=== PATIENT | male | born 1935 | race Caucasian/White ===

== ENCOUNTER → 2020-08-14 15:10 | Outpatient (CLI) | payer MEDICARE, OTHER, SELFPAY ==
[2020-08-14 15:49] LABS: COVID19 -Nasal RAPID Negative (Negative)
== END ==
PROVIDERS: Visit Provider Physical Medicine & Rehabilitation
DX: Z01.812 Encounter for preprocedural laboratory examination (principal); Z20.822 Contact with and (suspected) exposure to COVID-19
CPT/HCPCS: 87635; C9803

== ENCOUNTER 2020-08-15 14:02 | Outpatient (CLI) | payer MEDICARE, OTHER, SELFPAY ==
[2020-08-15] VITALS (9 sets, daily range): BP systolic 137–190; BP diastolic 57–83; PULSE 60–70; RESP 16–19; TEMP 36.9; O2SAT 97–100
--- NOTE | 2020-08-15 14:05 | DI.RAD.S_ITS ---
PROCEDURE: PAIN L INTERLAMINAR/CAUDAL INJ INDICATIONS: L2/3 TL [facility] COMPARISON: Outside Facility, RG, MRI L-SPINE W/O CONTRAST, 05/30/2020, 9:20. Outside Facility, RG, XR L-SPINE 2-3V, 04/28/2020, 10:06. FINDINGS: Fluoroscopic spot filming was performed to verify placement of a spinal needle at the L2-L3 level, as labeled on the films. Appropriate location of the needle tip was confirmed by injection of iodinated contrast. IMPRESSION: Intraprocedural examination within normal limits. Dictated by: Dillon Brito M.D. on 08/15/2020 at 15:47 Approved by: Dillon Brito M.D. on 08/15/2020 at 15:47
[2020-08-15] MEDS: MIDAZOLAM 5 MG/5 ML VIAL IV (15:23)
[2020-08-15] MEDS: IOPAMIDOL 15 ML VIAL 3 ML INJ (15:27)
[2020-08-15] MEDS: BUPIVACAINE 0.25% (PF) VIAL 2 ML INJ (15:27)
[2020-08-15] MEDS: BETAMETHASONE 30 MG/5 ML MDV 6 MG INJ (15:27)
[2020-08-15] MEDS: DEXAMETHASONE 10 MG/ML VIAL 20 MG INJ (15:28)
--- NOTE | 2020-08-15 15:34 | PM.PROC.IR.1 ---
Date/Time/Diagnoses Date of procedure: 08/15/20 Time of procedure: 15:34 Pre-procedure diagnosis: 1. HNP WITH RADICULAR FEATURES, 2. MULTILEVEL CENTRAL STENOSIS, Post-procedure diagnosis: same Procedure Notes Procedure: 1. FLUOROSCOPICALLY GUIDED CONTRAST CONTROLLED INTERLAMINAR EPIDURAL STEROID INJECTION - L2/3 Indications: [facility] is referred for treatment of Bilateral Foraminal Stenosis L>R LE symptoms. Physician: Krishna Rosales Total Fluoroscopy time (seconds): 6 Total sedation minutes: 9 Complications: none Procedure in detail & Post-procedure care: FINDINGS Multilevel Central Spinal Stenosis with Nerve Root Compression DESCRIPTION OF PROCEDURE Fluoroscopically guided, contrast-controlled L2/3 translaminar epidural steroid injection. Following review of allergy and review of potential side effects and complications, including, but not necessarily limited to, infection, allergic reaction, local tissue breakdown, temporary as well as permanent nerve injury, paralysis, stroke and possible , the patient indicated that the patient understood and agreed to proceed. An informed consent document was signed by the patient, witnessed by a nurse, and placed in the patient's chart. Additionally, other treatment options including modalities, medications, and physical therapy were reviewed with the patient. After review of previous anaesthesic history and IV conscious sedation the patient was deemed safe to proceed with today?s procedure with IV conscious sedation as ASA class II designation. Safety time-out was performed to confirm patient ID, procedure to be performed and site of procedure. IV sedation was accomplished with a combination of 1mg Versed administered by the RN after DO order, titrated to patient comfort during the course of the procedure while the patient remained responsive to all verbal commands. In the prone position, following sterile prep and drape of the lumbar region,the L2/3 translaminar space was identified fluoroscopically. The skin was anesthetized via a 25-gauge, 1.5-inch needle with 1% lidocaine solution. At this point, a 22-gauge short bevel spinal needle was atraumatically introduced and advanced under fluoroscopic guidance into the region of the L2/3 translaminar space. Depth was confirmed on lateral view. Radiological data, including multiple fluoroscopic views of the lumbar spine, reveal a spinal needle at the L2/3 translaminar space. Lateral views then show placement of the needle in the epidural space. Subsequent views show contrast material flowing superiorly and inferiorly in the epidural space. No vascular or intrathecal uptake is observed. At this point, using loss of resistance technique with saline and air, the epidural space was entered. This was confirmed following negative aspiration with injection of approximately 1.5 cc of Isovue 200, showing excellent epidural flow without vascular or intrathecal uptake. At this point, 1cc of 1% lidocaine solution combined with 3cc or 20mg of dexamethasone and 6mg of betamethasone was injected without incident. The patient tolerated the procedure well without signs or symptoms of complications prior to transfer to the recovery area continued monitoring without incident. The patient was then transferred to the recovery area where they were observed for an appropriate period of time after the injection. The patient reported a VAS score of 6 prior to the procedure and a post-procedure VAS of 0. POST OP INSTRUCTIONS The patient was provided a Pain Log to continue to record their response to the target-specific procedure prior to follow-up visit with their referring physician. Additionally, specific post-injection care instructions and a contact number to our office were provided if concerns arise regarding possible complications associated with the procedure are suspected.
== END 2020-08-15 16:05 | disposition home or self-care (01) ==
PROVIDERS: Referring Provider Physical Medicine & Rehabilitation; Visit Provider Physical Medicine & Rehabilitation
DX: M51.16 Intervertebral disc disorders with radiculopathy, lumbar region (principal); M48.061 Spinal stenosis, lumbar region without neurogenic claudication
CPT/HCPCS: 62323; J0702; J1100; J2250; J3010

== ENCOUNTER → 2020-09-25 15:45 | Outpatient (CLI) | payer MEDICARE, OTHER, SELFPAY ==
[2020-09-25 17:46] LABS: COVID19 -Nasal RAPID Negative (Negative)
== END ==
PROVIDERS: Visit Provider Physical Medicine & Rehabilitation
DX: Z20.822 Contact with and (suspected) exposure to COVID-19 (principal)
CPT/HCPCS: 87635; C9803

== ENCOUNTER 2020-09-26 14:19 | Outpatient (CLI) | payer MEDICARE, OTHER, SELFPAY ==
--- NOTE | 2020-09-26 14:24 | DI.RAD.S_ITS ---
PROCEDURE: PAIN L/S FACET INJ/BLK 1ST ARMAND COMPARISON: [facility], XA, PAIN L INTERLAMINAR/CAUDAL INJ, 08/15/2020, 15:26. Outside Facility, RG, MRI L-SPINE W/O CONTRAST, 05/30/2020, 9:20. INDICATIONS: SPONDYLOSIS FINDINGS: 6 intraoperative fluoroscopy images demonstrate needle placement at L2-L3 and L4-L5. Note is made of spinal fusion at L3-L4. IMPRESSION: Fluoroscopy for pain management. Dictated by: Mini Godfrey M.D. on 09/26/2020 at 16:17 Approved by: Mini Godfrey M.D. on 09/26/2020 at 16:24
[2020-09-26 14:40] VITALS: BP 123/57; PULSE 67; RESP 17; TEMP 36.2; O2SAT 97
[2020-09-26 15:20] VITALS: BP 179/81; PULSE 63; RESP 15; O2SAT 99
[2020-09-26] MEDS: MIDAZOLAM 5 MG/5 ML VIAL IV (15:22)
[2020-09-26 15:25] VITALS: BP 162/72; PULSE 67; RESP 17; O2SAT 98
[2020-09-26 15:30] VITALS: BP 148/65; PULSE 70; RESP 17; O2SAT 98
[2020-09-26] MEDS: IOPAMIDOL 15 ML VIAL 3 ML INJ (15:31)
[2020-09-26] MEDS: BETAMETHASONE 30 MG/5 ML MDV 12 MG INJ (15:32)
[2020-09-26] MEDS: BUPIVACAINE 0.5% (PF) VIAL 2 ML INJ (15:32)
[2020-09-26] MEDS: LIDOCAINE 1% 20 ML 10 ML INJ (15:33)
--- NOTE | 2020-09-26 15:36 | P.PCN_ITS ---
Date/Time/Diagnoses Date of procedure: 09/26/20 Time of procedure: 15:36 Pre-procedure diagnosis: 1. FACET ARTHROPATHY 2. AXIAL LBP 3. MULTILEVEL DDD Post-procedure diagnosis: same Procedure Notes Procedure: 1. FLUORSCOPICALLY GUIDED CONTRAST CONTROLLED FACET JOINT INJECTIONS BILATERAL L2/3, L4/5 Indications: [facility] is referred for treatment of Axial LBP s/p Fusion. Physician: Krishna Rosales Total Fluoroscopy time (seconds): 10 Total sedation minutes: 11 Complications: none Procedure in detail & Post-procedure care: FINDINGS Multilevel Facet Arthropathy with Clinically significant axial LBP DESCRIPTION OF PROCEDURE Fluoroscopically guided, contrast-controlled bilateral L2/3, L4/5 facet joint injections. Following review of allergy and review of potential side effects and complications, including, but not necessarily limited to, infection, allergic reaction, local tissue breakdown, stroke, temporary or permanent nerve injury, paralysis, and possible , the patient indicated that the patient understood and agreed to proceed. An informed consent document was signed by the patient, witnessed by a nurse, and placed in the patient's chart. Additionally, other treatment options including medications, modalities, and physical therapy were reviewed with the patient. After review of previous anaesthesic history and IV conscious sedation the patient was deemed safe to proceed with today's procedure with IV conscious sedation as ASA class II designation. Safety time-out was performed to confirm patient ID, procedure to be performed and site of procedure. IV sedation was accomplished with a combination of 2mg of Versed was administered by the RN after DO order, titrated to patient comfort during the course of the procedure while the patient remained responsive to all verbal commands. In the prone position, following sterile prep and drape of the lumbar region, the posterior aspect of the L2/3, L4/5 facet joints were identified fluoroscopically. The skin was anesthetized via a 25-gauge 1.5-inch needle with 1% lidocaine solution into the corresponding facet joints. At this point, a 22- gauge 3.5-inch spinal needle was atraumatically introduced and advanced under fluoroscopic guidance into the corresponding facet joints. Following negative aspiration, injections of approximately 0.2cc of Isovue 200 confirmed interarticular placement without vascular uptake. The identical procedure was then performed at the L2/3, L4/5 facet joints on the left. Radiological data, including multiple fluoroscopic views of the lumbosacral spine, reveal a spinal needle at the L2/3, L4/5 facet joints bilaterally. Subsequent views show flow of contrast material both superiorly and inferiorly within the joint space without vascular or intrathecal uptake. At this point, a total of 0.5cc including a mixture of 0.25cc Marcaine and 0.25cc betamethasone was injected without complication into each of the corresponding facet joints. The patient tolerated the procedure well without signs or symptoms of complications prior to transfer to the recovery area continued monitoring without incident. The patient was then transferred to the recovery area where they were observed for an appropriate period of time after the injection. The patient reported a VAS score of 7 prior to the procedure and a post-procedure VAS of 0. POST OP INSTRUCTIONS The patient was provided a Pain Log to continue to record their response to the target-specific procedure prior to follow-up visit with their referring physician. Additionally, specific post-injection care instructions and a contact number to our office were provided if concerns arise regarding possible complications associated with the procedure are suspected.
== END 2020-09-26 16:12 | disposition home or self-care (01) ==
LOC: RAD 14:24
PROVIDERS: Referring Provider Physical Medicine & Rehabilitation; Visit Provider Physical Medicine & Rehabilitation
DX: M47.816 Spondylosis without myelopathy or radiculopathy, lumbar region (principal); M51.36 Other intervertebral disc degeneration, lumbar region; M54.5 Low back pain
CPT/HCPCS: 64493; 64494; 99152; J0702; J2250; J3010

== ENCOUNTER 2020-12-07 07:18 | Outpatient (CLI) | payer MEDICARE, OTHER, SELFPAY ==
[2020-12-07] VITALS (16 sets, daily range): BP systolic 83–173; BP diastolic 48–81; PULSE 59–70; RESP 13–20; TEMP 36.2; O2SAT 94–99
--- NOTE | 2020-12-07 07:19 | DI.RAD.S_ITS ---
PROCEDURE: PAIN L/S FACET INJ/BLK 1ST ARMAND COMPARISON: [facility], , PAIN L/S FACET INJ/BLK 1ST ARMAND, 09/26/2020, 15:23. INDICATIONS: SPONDYLOSIS FINDINGS: Fluoroscopic spot filming was performed to verify placement of spinal needles on both sides at L2, L3, L4, and L5, as labeled on the films. Appropriate location of the needle tips was confirmed by injection of iodinated contrast. IMPRESSION: Intraprocedural examination within normal limits. Dictated by: Dillon Brito M.D. on 12/07/2020 at 10:38 Approved by: Dillon Brito M.D. on 12/07/2020 at 10:39
[2020-12-07] MEDS: fentaNYL 100 MCG/2 ML INJ 50 MCG IV (08:22)
[2020-12-07] MEDS: IOPAMIDOL 15 ML VIAL 3 ML INJ (08:25)
[2020-12-07] MEDS: LIDOCAINE 1% 20 ML 10 ML INJ (08:26)
[2020-12-07] MEDS: BUPIVACAINE 0.5% (PF) VIAL 5 ML INJ (08:26)
[2020-12-07] MEDS: MIDAZOLAM 5 MG/5 ML VIAL IV (08:32)
--- NOTE | 2020-12-07 09:13 | P.PCN_ITS ---
Date/Time/Diagnoses Date of procedure: 12/07/20 Time of procedure: 09:13 Pre-procedure diagnosis: 1. FACET ARTHROPATHY Post-procedure diagnosis: same Procedure Notes Procedure: 1. BILATERAL L2, L3, L4 AND L5 DIAGNOSTIC MB BLOCKS Indications: [facility] is referred for treatment of Bilateral Axial LBP. Physician: Krishna Rosales Total Fluoroscopy time (seconds): 17 Total sedation minutes: 21 Complications: none Procedure in detail & Post-procedure care: DESCRIPTION OF PROCEDURE Fluoroscopically guided, contrast-controlled bilateral L2, L3, L4 AND L5 medial branch blocks with 0.5cc of 0.5% Marcaine. Following review of allergy and review of potential side effects and complications, including, but not necessarily limited to, infection, allergic reaction, local tissue breakdown, nerve injury, paralysis, stroke and possible , the patient indicated that the patient understood and agreed to proceed. An informed consent document was signed by the patient, witnessed by a nurse, and placed in the patient's chart. After review of previous anaesthesic history and IV conscious sedation the patient was deemed safe to proceed with today's procedure with IV conscious sedation as ASA class II designation. Safety time-out was performed to confirm patient ID, procedure to be performed and site of procedure. IV sedation was accomplished with a combination of 4mg of Versed and 50mcg of Fentantyl was a dministered by the RN after DO order, titrated to patient comfort during the course of the procedure while the patient remained responsive to all verbal commands In the prone position, following sterile prep and drape of the lumbar region, the right L2, L3, L4 AND L5 anatomical location of the medial branch of the dorsal ramus was identified fluoroscopically. Subsequently an anesthetic skin wheal using 1% lidocaine solution was initiated at each of the anatomical spots. Subsequently then a 22-gauge 3.5-inch spinal needle was atraumatically introduced and advanced under fluoroscopic guidance at each of the corresponding sites at the right L2, L3, L4 and L5 MB. After negative aspiration, 0.2cc of Isovue 200 was injected, confirming placement without vascular or intrathecal uptake. Subsequently then 0.5cc of 0.5% Marcaine solution was injected at each of the corresponding sites at the right L2, L3, L4 and L5 medial branch locations. The identical procedure was replicated on the left. The patient tolerated the procedure well without signs or symptoms of complications. The patient tolerated the procedure well without signs or symptoms of complications prior to transfer to the recovery area continued monitoring without incident. Post-procedure, the patient was monitored initiating provocative activities to measure the amount of relief from block of the facetogenic pain. The patient reported a VAS of 7 prior to the procedure and a post-procedure VAS of 1. It has been a pleasure to assist in the diagnostic and therapeutic care of your patient. POST OP INSTRUCTIONS The patient was provided with a Pain Log to complete over the next several hours and subsequent days prior to the patient's follow up with the ordering physician. If the patient has hosiery repairer relief to the solution applied, then they may be a candidate for medial branch rhizotomy. The patient is aware, was provided, once again, with a Pain Log and will follow up with the referring physician for review and clinical correlation
--- NOTE | 2020-12-07 10:08 | PC.NURSE ---
Patient was SBA with standing to use bathroom. He is A&O able to make needs known. He reports he feels at his baseline for steadiness on feet. Denies any dizziness or lightheaded, transferred at baseline into w/c as prior to procedure.
--- NOTE | 2020-12-07 11:16 | PC.NURSE ---
0845 Patient tolerated procedure well, was awake and relaxed throughout. At the end of the procedure after being cleaned up he was only responsive to painful stimuli. Vital signs remained stable (see trends), maintaining airway and Sp02 without issue. Once the patient was able to respond to verbal stimuli and follow simple commands he was assisted in turning from prone to supine on the procedure table where his BP dropped to 84/48 (60) - patient remained drowsy. Given more time patient was able to rouse enough to stand and pivot to the WC with 2 person minimal assist. Last BP in procedure room 111/58 (80). Taken to post recovery room and care handed off to CHARLOTTE Martinez with patient awake in NAD. VSS, Sp02 96% RA.
== END 2020-12-07 09:50 | disposition home or self-care (01) ==
LOC: RAD 07:18
PROVIDERS: Referring Provider Physical Medicine & Rehabilitation; Visit Provider Physical Medicine & Rehabilitation
DX: M47.816 Spondylosis without myelopathy or radiculopathy, lumbar region (principal)
CPT/HCPCS: 64493; 64494; 64495; 99152; J2250; J3010

== ENCOUNTER 2021-02-20 07:05 | Outpatient (CLI) | payer MEDICARE, OTHER, SELFPAY ==
[2021-02-20] VITALS (13 sets, daily range): BP systolic 88–171; BP diastolic 48–87; PULSE 58–87; RESP 9–16; TEMP 36.7; O2SAT 92–98
--- NOTE | 2021-02-20 07:07 | DI.RAD.S_ITS ---
PROCEDURE: PAIN L/S MED/LAT N RFA BILAT INDICATIONS: SPONDYLOSIS COMPARISON: [facility], , PAIN L/S FACET INJ/BLK 1ST ARMAND, 12/07/2020, 8:28. FINDINGS: Fluoroscopic spot filming was performed to verify placement of spinal needles at the L2 through L5 level(s), as labeled on the films. IMPRESSION: Intraprocedural examination within normal limits. Dictated by: Dillon Brtio M.D. on 02/20/2021 at 8:48 Approved by: Dillon Brito M.D. on 02/20/2021 at 8:49
--- NOTE | 2021-02-20 09:27 | P.PCN_ITS ---
Date/Time/Diagnoses Date of procedure: 02/20/21 Pre-procedure diagnosis: 1. RECALCITRANT FACET ARTHROPATHY Post-procedure diagnosis: same Procedure Notes Procedure: 1. BILATERAL L2, L3, L4 AND L5 MEDIAL BRANCH RADIOFREQUENCY NEUROTOMY Indications: [facility] is referred for treatment of facet arthropathy. Physician: Krishna Rosales Total Fluoroscopy time (seconds): 20 Total sedation minutes: 40 Complications: none Procedure in detail & Post-procedure care: DESCRIPTION OF PROCEDURE Bilateral L3, L4 and L5 medial branch radiofrequency neurotomy The patient is well known to this clinic having undergone previous facet injections with good but temporary relief. The patient has experienced appropriate, concordant relief with previous facet and median branch blocks but the patient's pain has been recalcitrant to further conservative measures. Therefore, based upon the patient's relief and persistent symptoms, the patient is considered an appropriate candidate for facet rhizotomy. All of the patient's questions regarding the risks versus benefits of the procedure, including, but not limited to, bleeding, infection, temporary as well as lasting nerve injury, paralysis, stroke, and , as well treatment alternatives were answered to satisfaction. After obtaining informed consent, denial of pertinent drug allergies, as well as being made aware of the potential risks of bleeding, infection, spinal cord trauma, paralysis, temporary and permanent nerve damage, seizure, stroke, and possible , the patient was brought to the fluoroscopy suite and positioned prone on the fluoroscopy table. The lumbar region was prepped with Betadine and covered with a fenestrated drape in the usual sterile fashion. Appropriate monitors applied including pulse oximeter, pulse, and blood pressure for regular monitoring throughout the procedure. After review of previous anaesthesic history and IV conscious sedation the patient was deemed safe to proceed with today's procedure with IV conscious sedation as ASA class II designation. Safety time-out was performed to confirm patient ID, procedure to be performed and site of procedure. IV sedation was accomplished with a combination of 4mg of Versed and 50mcg of Fentanyl a dministered by the RN after DO order, titrated to patient comfort during the course of the procedure while the patient remained responsive to all verbal commands. After local infiltration using 1% lidocaine, under fluoroscopic guidance, a 10- cm RF insulated needle with a 10-mm active tip was positioned parallel to the junction of the right the superior articulating process where the L5 medial b ranch resides. Needle placement was confirmed with motor stimulation of .5v on the right which produced local stimulation without radicular component. The stimulation was then increased to 2v with, once again, only local multifidus stimulation without radicular component. The needle was then removed and the identical procedure was performed along the length of the right L4 medial branch with motor stimulation at .7v on the right. The identical procedure was once again performed along the length of the right L3 and medial branch with motor stimulation of .5v on the right. The medial branches were then anesthetised with 0.5% marcaine. The identical procedure was once again performed along the length of the right L2 and medial branch with motor stimulation of .5v on the right. The medial branches were then anesthetised with 0.5% marcaine. This was then followed by two discreet lesions performed at 80 degrees Celsius for 90 seconds each. The identical procedures were repeated on the left. The patient tolerated the procedure well without signs or symptoms of complications prior to transfer to the recovery area continued monitoring without incident. The patient was then transferred to the recovery area where they were observed for an appropriate period of time after the injection. The patient reported a VAS score of 9 prior to the procedure and a post-procedure VAS of 0. POST OP INSTRUCTIONS The patient was provided a Pain Log to continue to record the patient's response to the target-specific procedure prior to the patient's follow-up visit with the referring physician. Additionally, specific post-injection care instructions and a contact number to our office were provided if concerns arise regarding possible complications associated with the procedure are suspected.
[2021-02-20] MEDS: fentaNYL 100 MCG/2 ML INJ 50 MCG IV (14:47)
[2021-02-20] MEDS: MIDAZOLAM 5 MG/5 ML VIAL IV (14:50)
== END 2021-02-20 10:20 | disposition home or self-care (01) ==
LOC: RAD 07:06
PROVIDERS: Referring Provider Physical Medicine & Rehabilitation; Visit Provider Physical Medicine & Rehabilitation
DX: M47.816 Spondylosis without myelopathy or radiculopathy, lumbar region (principal)
CPT/HCPCS: 64635; 64636; 99152; 99153; J2250; J3010